=== PATIENT | female | born 1940 | race Caucasian/White ===

== ENCOUNTER → 2016-05-16 | Outpatient (CLI) | payer OTHER ==
[~2016-05-16] MED LIST: ASCO500T16 PO; ASPI-232 PO; ATOR10TA88 PO; CALCTAB66 PO; CHOLTAB11 PO; CITA20TA9 PO; CLON0.5T3 PO; CLON1TAB3 PO; DEXT20CA PO; DIVA250T PO; DIVA500T3 PO; FSLUDL325 PO; INSDGI SC; LEVO125T4 PO; MAGN400T5 PO; MIRT15TA3 PO; OMEP20CA9 PO; PLV75 PO; POTA10PO PO; SENN-91 PO; TRAM-10 PO
[2016-05-16 09:21] LABS: INR 3.4 (0.9-1.1); PROTHROMBIN TIME (PATIENT) 37.7 SECONDS (9.0-12.0)
== END ==
LOC: C.LABUPBEA 08:40
PROVIDERS: ATTEND Family Medicine
DX: I82.501 Chronic embolism and thrombosis of unspecified deep veins of right lower extremity (principal)

== ENCOUNTER → 2016-05-19 | Outpatient (CLI) | payer OTHER ==
[2016-05-19 11:55] LABS: BLOOD UREA NITROGEN 18 mg/dl (7-18); BUN/CREATININE RATIO 19.4 (10-20); CALCIUM 8.1 mg/dl (8.5-10.1); CARBON DIOXIDE 31 mmol/L (21-32); CHLORIDE 104 mmol/L (98-107); CREATININE 0.93 mg/dl (0.60-1.20); GLUCOSE 142 mg/dl (70-99); POTASSIUM 4.3 mmol/L (3.5-5.1); SODIUM 142 mmol/L (136-145)
--- NOTE | 2016-06-21 11:10 | CODING QUERY MEDICAL NECESSITY ---
SUPPORTING DIAGNOSIS NEEDED A supporting diagnosis is required for the test/procedure performed on this patient in order for us to be reimbursed by the patient's insurance. Please provide a supporting diagnosis for the following test/procedure listed below next to the test name along with your signature. *If there is no additional diagnosis for this patient that would support the following test/procedure please document that below next to the test/procedure. Test(s)/Procedure(s) that require a supporting diagnosis: * VITAMIN D DIAGNOSIS: * DOS: 05/19/16 Provider Signature: Date: Thank you Sammie Sanders [facility] Information Management Once completed, please kindly fax back to [phone] For questions please call [phone]
== END | disposition home or self-care (01) ==
LOC: C.LABUPBEA 11:01
PROVIDERS: ATTEND Family Medicine
DX: E11.51 Type 2 diabetes mellitus with diabetic peripheral angiopathy without gangrene (principal); E03.9 Hypothyroidism, unspecified; I67.89 Other cerebrovascular disease; E55.9 Vitamin D deficiency, unspecified

== ENCOUNTER → 2016-05-20 | Outpatient (CLI) | payer OTHER ==
[2016-05-20 09:04] LABS: INR 4.3 (0.9-1.1)
== END ==
LOC: C.LABUPBEA 08:24
PROVIDERS: ATTEND Family Medicine
DX: I67.9 Cerebrovascular disease, unspecified (principal)

== ENCOUNTER → 2016-05-22 | Outpatient (CLI) | payer OTHER ==
[2016-05-22 08:57] LABS: INR 3.4 (0.9-1.1)
== END ==
LOC: C.LABUPBEA 07:50
PROVIDERS: ATTEND Family Medicine
DX: I82.501 Chronic embolism and thrombosis of unspecified deep veins of right lower extremity (principal)

== ENCOUNTER → 2016-05-23 | Outpatient (CLI) | payer OTHER ==
[2016-05-23 09:49] LABS: INR 2.8 (0.9-1.1); PROTHROMBIN TIME (PATIENT) 31.4 SECONDS (9.0-12.0)
== END | disposition home or self-care (01) ==
LOC: C.LABUPBEA 09:12
PROVIDERS: ATTEND Family Medicine
DX: I82.501 Chronic embolism and thrombosis of unspecified deep veins of right lower extremity (principal)

== ENCOUNTER → 2016-06-02 | Outpatient (CLI) | payer OTHER ==
[2016-06-02 09:46] LABS: INR 2.5 (0.9-1.1); PROTHROMBIN TIME (PATIENT) 27.8 SECONDS (9.0-12.0)
== END ==
LOC: C.LABUPBEA 08:48
PROVIDERS: ATTEND Family Medicine
DX: I82.501 Chronic embolism and thrombosis of unspecified deep veins of right lower extremity (principal)

== ENCOUNTER → 2016-06-17 | Outpatient (CLI) | payer OTHER ==
[2016-06-17 09:19] LABS: INR 1.5 (0.9-1.1); PROTHROMBIN TIME (PATIENT) 15.8 SECONDS (9.0-12.0)
== END ==
LOC: C.LABUPBEA 08:58
PROVIDERS: ATTEND Family Medicine
DX: I63.50 Cerebral infarction due to unspecified occlusion or stenosis of unspecified cerebral artery (principal)

== ENCOUNTER → 2016-06-24 | Outpatient (CLI) | payer OTHER ==
[2016-06-24 09:40] LABS: PROTHROMBIN TIME (PATIENT) 45.3 SECONDS (9.0-12.0)
== END ==
LOC: C.LABUPBEA 08:57
PROVIDERS: ATTEND Family Medicine
DX: I82.501 Chronic embolism and thrombosis of unspecified deep veins of right lower extremity (principal)

== ENCOUNTER → 2016-06-29 | Outpatient (CLI) | payer OTHER ==
[2016-06-29 09:06] LABS: INR 3.3 (0.9-1.1); PROTHROMBIN TIME (PATIENT) 37.5 SECONDS (9.0-12.0)
== END ==
LOC: C.LABUPBEA 08:38
PROVIDERS: ATTEND Family Medicine
DX: I82.501 Chronic embolism and thrombosis of unspecified deep veins of right lower extremity (principal)

== ENCOUNTER → 2016-07-06 | Outpatient (CLI) | payer OTHER ==
[2016-07-06 09:12] LABS: PROTHROMBIN TIME (PATIENT) 58.3 SECONDS (9.0-12.0)
[2016-07-06 09:20] LABS: INR 5.1 (0.9-1.1)
== END ==
LOC: C.LABUPBEA 08:43
PROVIDERS: ATTEND Family Medicine
DX: I82.501 Chronic embolism and thrombosis of unspecified deep veins of right lower extremity (principal); R07.0 Pain in throat

== ENCOUNTER → 2016-07-07 | Outpatient (CLI) | payer OTHER ==
[2016-07-07 08:37] LABS: PROTHROMBIN TIME (PATIENT) 45.1 SECONDS (9.0-12.0)
== END | disposition home or self-care (01) ==
LOC: C.LABUPBEA 08:08
PROVIDERS: ATTEND Family Medicine
DX: I82.501 Chronic embolism and thrombosis of unspecified deep veins of right lower extremity (principal)

== ENCOUNTER → 2016-07-08 | Outpatient (CLI) | payer OTHER ==
[2016-07-08 08:50] LABS: BASO % 1.1 %; BASO ABS # 0.05 K/uL (0-0.2); COMPLETE YES; EOS % 3.4 %; IG% 0.6 %; LYMPH % 34.7 %; LYMPH ABS # 1.62 K/uL (1.2-3.4); MEAN CELL VOLUME 85.3 fL (80-100); MEAN CORPUSCULAR HEMOGLOBIN 28.6 pg (25-34); MEAN CORPUSCULAR HGB CONC 33.5 g/dl (32-36); MEAN PLATELET VOLUME 10.3 fL (7.4-10.4); MONO % 5.8 %; NEUT % 54.4 %; PLATELET COUNT 163 K/uL (130-400); RED BLOOD COUNT 4.34 M/uL (4.2-5.4); WHITE BLOOD COUNT 4.67 K/uL (4.8-10.8)
[2016-07-08 08:58] LABS: ALT/SGPT 19 U/L (12-78); BLOOD UREA NITROGEN 18 mg/dl (7-18); CALCIUM 8.4 mg/dl (8.5-10.1); CARBON DIOXIDE 28 mmol/L (21-32); CHLORIDE 99 mmol/L (98-107); CREATININE 0.86 mg/dl (0.60-1.20); GLUCOSE 237 mg/dl (70-99); MAGNESIUM 1.9 mg/dl (1.8-2.4); POTASSIUM 3.9 mmol/L (3.5-5.1); SODIUM 136 mmol/L (136-145)
[2016-07-08 09:01] LABS: PROTHROMBIN TIME (PATIENT) 22.3 SECONDS (9.0-12.0)
[2016-07-08 09:08] LABS: ALB/GLOB RATIO 0.9 (0.9-2)
[2016-07-08 09:09] LABS: ALKALINE PHOSPHATASE 123 U/L (45-117); AST/SGOT 11 U/L (15-37)
[2016-07-08 09:58] LABS: ESTIMATED AVERAGE GLUCOSE 169 mg/dl; HA1C FLAG Normal (Normal)
== END ==
LOC: C.LABUPBEA 08:26
PROVIDERS: ATTEND Family Medicine
DX: E11.51 Type 2 diabetes mellitus with diabetic peripheral angiopathy without gangrene (principal); D64.9 Anemia, unspecified; I82.501 Chronic embolism and thrombosis of unspecified deep veins of right lower extremity; E03.9 Hypothyroidism, unspecified; G89.29 Other chronic pain; F06.30 Mood disorder due to known physiological condition, unspecified

== ENCOUNTER → 2016-07-14 | Outpatient (CLI) | payer OTHER ==
[2016-07-14 09:22] LABS: INR 1.6 (0.9-1.1); PROTHROMBIN TIME (PATIENT) 17.4 SECONDS (9.0-12.0)
--- NOTE | 2016-08-10 13:33 | CODING QUERY MEDICAL NECESSITY ---
SUPPORTING DIAGNOSIS NEEDED A supporting diagnosis is required for the test/procedure performed on this patient in order for us to be reimbursed by the patient's insurance. Please provide a supporting diagnosis for the following test/procedure listed below next to the test name along with your signature. *If there is no additional diagnosis for this patient that would support the following test/procedure please document that below next to the test/procedure. Test(s)/Procedure(s) that require a supporting diagnosis: DOS 3/2 * Vitamin D DIAGNOSIS: Provider Signature: Date: Thank you Yessy Whiting [facility] Information Management Once completed, please kindly fax back to [phone] For questions please call [phone]
== END ==
LOC: C.LABUPBEA 09:02
PROVIDERS: ATTEND Family Medicine
DX: I82.501 Chronic embolism and thrombosis of unspecified deep veins of right lower extremity (principal); D64.9 Anemia, unspecified; E55.9 Vitamin D deficiency, unspecified

== ENCOUNTER → 2016-07-21 | Outpatient (CLI) | payer OTHER ==
[2016-07-21 09:32] LABS: INR 2.9 (0.9-1.1); PROTHROMBIN TIME (PATIENT) 32.8 SECONDS (9.0-12.0)
== END ==
LOC: C.LABUPBEA 09:08
PROVIDERS: ATTEND Family Medicine
DX: I82.501 Chronic embolism and thrombosis of unspecified deep veins of right lower extremity (principal)

== ENCOUNTER → 2016-07-29 | Outpatient (CLI) | payer OTHER ==
[2016-07-29 08:46] LABS: INR 2.4 (0.9-1.1); PROTHROMBIN TIME (PATIENT) 26.5 SECONDS (9.0-12.0)
== END ==
LOC: C.LABUPBEA 08:20
PROVIDERS: ATTEND Family Medicine
DX: I82.501 Chronic embolism and thrombosis of unspecified deep veins of right lower extremity (principal)

== ENCOUNTER → 2016-08-04 | Outpatient (CLI) | payer OTHER ==
[~2016-08-04] MED LIST changes: +ATOR10TA82 PO; -ATOR10TA88 PO; -LEVO125T4 PO; +LEVO125T5 PO
[2016-08-04 09:42] LABS: INR 2.3 (0.9-1.1); PROTHROMBIN TIME (PATIENT) 25.2 SECONDS (9.0-12.0)
== END ==
LOC: C.LABUPBEA 08:52
PROVIDERS: ATTEND Family Medicine
DX: I82.501 Chronic embolism and thrombosis of unspecified deep veins of right lower extremity (principal)

== ENCOUNTER → 2016-08-18 | Outpatient (CLI) | payer OTHER ==
[2016-08-18 09:44] LABS: INR 2.4 (0.9-1.1); PROTHROMBIN TIME (PATIENT) 26.1 SECONDS (9.0-12.0)
== END | disposition home or self-care (01) ==
LOC: C.LABUPBEA 09:22
PROVIDERS: ATTEND Family Medicine
DX: I82.501 Chronic embolism and thrombosis of unspecified deep veins of right lower extremity (principal)

== ENCOUNTER → 2016-09-01 | Outpatient (CLI) | payer OTHER ==
[2016-09-01 08:40] LABS: BLOOD UREA NITROGEN 19 mg/dl (7-18); BUN/CREATININE RATIO 23.1 (10-20); CARBON DIOXIDE 29 mmol/L (21-32); CHLORIDE 102 mmol/L (98-107); CREATININE 0.84 mg/dl (0.60-1.20); GLUCOSE 253 mg/dl (70-99); POTASSIUM 4.4 mmol/L (3.5-5.1); SODIUM 140 mmol/L (136-145)
[2016-09-01 08:48] LABS: CALCIUM 8.2 mg/dl (8.5-10.1)
[2016-09-01 09:57] LABS: ESTIMATED AVERAGE GLUCOSE 237 mg/dl; HA1C FLAG Normal (Normal)
== END ==
LOC: C.LABUPBEA 07:58
PROVIDERS: ATTEND Family Medicine
DX: E11.51 Type 2 diabetes mellitus with diabetic peripheral angiopathy without gangrene (principal); I10 Essential (primary) hypertension

== ENCOUNTER → 2016-09-12 | Outpatient (CLI) | payer OTHER ==
[2016-09-12 09:44] LABS: PROTHROMBIN TIME (PATIENT) 21.5 SECONDS (9.0-12.0)
== END ==
LOC: C.LABUPBEA 09:18
PROVIDERS: ATTEND Family Medicine
DX: I67.89 Other cerebrovascular disease (principal)

== ENCOUNTER → 2016-09-16 | Outpatient (CLI) | payer OTHER | LOC: C.LABUPBEA 09:37 | PROVIDERS: ATTEND Nurse Practitioner Family | DX: I67.9 Cerebrovascular disease, unspecified (principal) ==

== ENCOUNTER → 2016-09-19 | Outpatient (CLI) | payer OTHER ==
[2016-09-19 08:57] LABS: INR 3.1 (0.9-1.1); PROTHROMBIN TIME (PATIENT) 35.1 SECONDS (9.0-12.0)
== END | disposition home or self-care (01) ==
LOC: C.LABUPBEA 08:20
PROVIDERS: ATTEND Family Medicine
DX: I82.501 Chronic embolism and thrombosis of unspecified deep veins of right lower extremity (principal)

== ENCOUNTER → 2016-09-21 | Outpatient (CLI) | payer OTHER ==
[2016-09-21 10:06] LABS: INR 1.9 (0.9-1.1); PROTHROMBIN TIME (PATIENT) 21.4 SECONDS (9.0-12.0)
== END ==
LOC: C.LABUPBEA 09:37
PROVIDERS: ATTEND Family Medicine
DX: I82.501 Chronic embolism and thrombosis of unspecified deep veins of right lower extremity (principal)

== ENCOUNTER → 2016-09-23 | Outpatient (CLI) | payer OTHER ==
[2016-09-23 09:33] LABS: INR 1.5 (0.9-1.1); PROTHROMBIN TIME (PATIENT) 16.8 SECONDS (9.0-12.0)
== END ==
LOC: C.LABUPBEA 08:33
PROVIDERS: ATTEND Nurse Practitioner Family
DX: I82.501 Chronic embolism and thrombosis of unspecified deep veins of right lower extremity (principal)

== ENCOUNTER → 2016-09-26 | Outpatient (CLI) | payer OTHER ==
[2016-09-26 09:19] LABS: INR 1.5 (0.9-1.1); PROTHROMBIN TIME (PATIENT) 16.5 SECONDS (9.0-12.0)
== END | disposition home or self-care (01) ==
LOC: C.LABUPBEA 08:44
PROVIDERS: ATTEND Family Medicine
DX: I82.501 Chronic embolism and thrombosis of unspecified deep veins of right lower extremity (principal)

== ENCOUNTER → 2016-09-30 | Outpatient (CLI) | payer OTHER ==
[2016-09-30 10:24] LABS: INR 1.1 (0.9-1.1); PROTHROMBIN TIME (PATIENT) 11.9 SECONDS (9.0-12.0)
== END ==
LOC: C.LABUPBEA 09:57
PROVIDERS: ATTEND Family Medicine
DX: I82.501 Chronic embolism and thrombosis of unspecified deep veins of right lower extremity (principal)

== ENCOUNTER → 2016-10-03 | Outpatient (CLI) | payer OTHER ==
[2016-10-03 11:09] LABS: INR 1.7 (0.9-1.1); PROTHROMBIN TIME (PATIENT) 18.6 SECONDS (9.0-12.0)
== END | disposition home or self-care (01) ==
LOC: C.LABUPBEA 09:38
PROVIDERS: ATTEND Family Medicine
DX: I82.501 Chronic embolism and thrombosis of unspecified deep veins of right lower extremity (principal)

== ENCOUNTER → 2016-10-07 | Outpatient (CLI) | payer OTHER ==
[2016-10-07 09:13] LABS: BASO % 0.5 %; BASO ABS # 0.03 K/uL (0-0.2); COMPLETE YES; EOS % 4.3 %; HEMATOCRIT 38.6 % (37-47); IG% 0.9 %; LYMPH % 28.3 %; LYMPH ABS # 1.57 K/uL (1.2-3.4); MEAN CELL VOLUME 89.1 fL (80-100); MEAN CORPUSCULAR HEMOGLOBIN 28.9 pg (25-34); MEAN CORPUSCULAR HGB CONC 32.4 g/dl (32-36); MEAN PLATELET VOLUME 9.8 fL (7.4-10.4); PLATELET COUNT 147 K/uL (130-400); RED BLOOD COUNT 4.33 M/uL (4.2-5.4); WHITE BLOOD COUNT 5.54 K/uL (4.8-10.8)
[2016-10-07 09:20] LABS: INR 2.5 (0.9-1.1); PROTHROMBIN TIME (PATIENT) 28.3 SECONDS (9.0-12.0)
[2016-10-07 09:23] LABS: ALB/GLOB RATIO 0.8 (0.9-2); ALKALINE PHOSPHATASE 162 U/L (45-117); ALT/SGPT 45 U/L (12-78); AST/SGOT 13 U/L (15-37); BLOOD UREA NITROGEN 18 mg/dl (7-18); BUN/CREATININE RATIO 19.4 (10-20); CARBON DIOXIDE 29 mmol/L (21-32); CHLORIDE 103 mmol/L (98-107); CREATININE 0.93 mg/dl (0.60-1.20); GLUCOSE 215 mg/dl (70-99); MAGNESIUM 1.9 mg/dl (1.8-2.4); POTASSIUM 4.3 mmol/L (3.5-5.1); SODIUM 139 mmol/L (136-145)
[2016-10-07 09:27] LABS: CALCIUM 8.7 mg/dl (8.5-10.1)
[2016-10-07 09:28] LABS: ESTIMATED AVERAGE GLUCOSE 223 mg/dl; HA1C FLAG Normal (Normal)
== END ==
LOC: C.LABUPBEA 07:47
PROVIDERS: ATTEND Family Medicine
DX: E11.51 Type 2 diabetes mellitus with diabetic peripheral angiopathy without gangrene (principal); I79.8 Other disorders of arteries, arterioles and capillaries in diseases classified elsewhere; E78.5 Hyperlipidemia, unspecified; E03.9 Hypothyroidism, unspecified; I82.501 Chronic embolism and thrombosis of unspecified deep veins of right lower extremity; M25.50 Pain in unspecified joint; F06.30 Mood disorder due to known physiological condition, unspecified

== ENCOUNTER → 2016-10-21 | Outpatient (CLI) | payer OTHER ==
[2016-10-21 09:26] LABS: INR 2.9 (0.9-1.1); PROTHROMBIN TIME (PATIENT) 32.8 SECONDS (9.0-12.0)
== END ==
LOC: C.LABUPBEA 08:42
PROVIDERS: ATTEND Nurse Practitioner Family
DX: I82.501 Chronic embolism and thrombosis of unspecified deep veins of right lower extremity (principal)

== ENCOUNTER → 2016-10-25 | Outpatient (CLI) | payer OTHER ==
[2016-10-25 11:05] LABS: INR 2.2 (0.9-1.1); PROTHROMBIN TIME (PATIENT) 24.1 SECONDS (9.0-12.0)
== END ==
LOC: C.LABUPBEA 09:09
PROVIDERS: ATTEND Nurse Practitioner Family
DX: I82.501 Chronic embolism and thrombosis of unspecified deep veins of right lower extremity (principal)

== ENCOUNTER → 2016-11-01 | Outpatient (CLI) | payer OTHER ==
[2016-11-01 11:06] LABS: INR 2.6 (0.9-1.1); PROTHROMBIN TIME (PATIENT) 28.6 SECONDS (9.0-12.0)
== END ==
LOC: C.LABUPBEA 10:02
PROVIDERS: ATTEND Family Medicine
DX: I82.501 Chronic embolism and thrombosis of unspecified deep veins of right lower extremity (principal)

== ENCOUNTER → 2016-11-08 | Outpatient (CLI) | payer OTHER ==
[~2016-11-08] MED LIST changes: -ATOR10TA82 PO; +ATOR10TA88 PO; +LEVO125T4 PO; -LEVO125T5 PO
[2016-11-08 11:22] LABS: INR 3.7 (0.9-1.1)
== END ==
LOC: C.LABUPBEA 08:46
PROVIDERS: ATTEND Nurse Practitioner Family
DX: I82.501 Chronic embolism and thrombosis of unspecified deep veins of right lower extremity (principal)

== ENCOUNTER → 2016-11-10 | Outpatient (CLI) | payer OTHER ==
[2016-11-10 10:52] LABS: INR 2.1 (0.9-1.1)
== END ==
LOC: C.LABUPBEA 09:22
PROVIDERS: ATTEND Nurse Practitioner Family
DX: I82.501 Chronic embolism and thrombosis of unspecified deep veins of right lower extremity (principal)

== ENCOUNTER → 2016-11-14 | Outpatient (CLI) | payer OTHER ==
[2016-11-14 09:25] LABS: INR 1.9 (0.9-1.1); PROTHROMBIN TIME (PATIENT) 20.7 SECONDS (9.0-12.0)
== END ==
LOC: C.LABUPBEA 08:55
PROVIDERS: ATTEND Nurse Practitioner Family
DX: I82.501 Chronic embolism and thrombosis of unspecified deep veins of right lower extremity (principal)

== ENCOUNTER → 2016-11-24 | Outpatient (CLI) | payer OTHER ==
[2016-11-24 09:51] LABS: INR 1.6 (0.9-1.1); PROTHROMBIN TIME (PATIENT) 17.4 SECONDS (9.0-12.0)
== END | disposition home or self-care (01) ==
LOC: C.LABUPBEA 08:58
PROVIDERS: ATTEND Family Medicine
DX: I82.501 Chronic embolism and thrombosis of unspecified deep veins of right lower extremity (principal)

== ENCOUNTER → 2016-12-01 | Outpatient (CLI) | payer OTHER ==
[2016-12-01 09:42] LABS: INR 2.5 (0.9-1.1); PROTHROMBIN TIME (PATIENT) 27.9 SECONDS (9.0-12.0)
== END | disposition home or self-care (01) ==
LOC: C.LABUPBEA 09:17
PROVIDERS: ATTEND Family Medicine
DX: G81.04 Flaccid hemiplegia affecting left nondominant side (principal); I82.501 Chronic embolism and thrombosis of unspecified deep veins of right lower extremity

== ENCOUNTER → 2016-12-05 | Outpatient (CLI) | payer OTHER ==
[2016-12-05 10:10] LABS: INR 2.7 (0.9-1.1); PROTHROMBIN TIME (PATIENT) 29.7 SECONDS (9.0-12.0)
--- NOTE | 2016-12-07 05:05 | CODING QUERY NO DIAGNOSIS ---
TREATMENT RENDERED WITHOUT A DIAGNOSIS To promote full compliance with coding requirements relating to patient care, physician participation is requested in all cases of tool checker uncertainty. Please assist us with providing a diagnosis/symptom for the test(s) below: A diagnosis/symptom was not documented on your Order. A valid diagnosis/symptom is required to bill all insurances. Please remember that we are unable to code a diagnosis of rule out, probable, possible, questionable, or suspected. Tests that require a diagnosis: DOS 12/05 * PTINR DIAGNOSIS: Provider Signature: Date: Thank you Yessy Whiting Health Information Management Once completed, please kindly fax back to [phone] For questions please call [phone]
== END ==
LOC: C.LABUPBEA 09:22
PROVIDERS: ATTEND Nurse Practitioner Family
DX: I48.91 Unspecified atrial fibrillation (principal)

== ENCOUNTER → 2016-12-09 | Outpatient (CLI) | payer OTHER ==
[2016-12-09 10:11] LABS: INR 2.9 (0.9-1.1); PROTHROMBIN TIME (PATIENT) 32.1 SECONDS (9.0-12.0)
== END ==
LOC: C.LABUPBEA 09:45
PROVIDERS: ATTEND Family Medicine
DX: G81.04 Flaccid hemiplegia affecting left nondominant side (principal); I82.501 Chronic embolism and thrombosis of unspecified deep veins of right lower extremity

== ENCOUNTER → 2016-12-14 | Outpatient (CLI) | payer OTHER ==
[2016-12-14 08:59] LABS: INR 1.8 (0.9-1.1); PROTHROMBIN TIME (PATIENT) 20.2 SECONDS (9.0-12.0)
== END | disposition home or self-care (01) ==
LOC: C.LABUPBEA 08:31
PROVIDERS: ATTEND Nurse Practitioner Family
DX: G81.04 Flaccid hemiplegia affecting left nondominant side (principal); I82.501 Chronic embolism and thrombosis of unspecified deep veins of right lower extremity

== ENCOUNTER → 2016-12-22 | Outpatient (CLI) | payer OTHER ==
[2016-12-22 10:14] LABS: INR 1.2 (0.9-1.1); PROTHROMBIN TIME (PATIENT) 12.9 SECONDS (9.0-12.0)
== END ==
LOC: C.LABUPBEA 08:55
PROVIDERS: ATTEND Nurse Practitioner Family
DX: I82.501 Chronic embolism and thrombosis of unspecified deep veins of right lower extremity (principal)

== ENCOUNTER → 2017-01-09 | Outpatient (CLI) | payer OTHER ==
[2017-01-09 09:02] LABS: BASO % 0.6 %; BASO ABS # 0.03 K/uL (0-0.2); COMPLETE YES; EOS % 3.1 %; HEMATOCRIT 36.9 % (37-47); IG% 0.6 %; LYMPH % 31.5 %; LYMPH ABS # 1.51 K/uL (1.2-3.4); MEAN CELL VOLUME 88.9 fL (80-100); MEAN CORPUSCULAR HEMOGLOBIN 29.9 pg (25-34); MEAN CORPUSCULAR HGB CONC 33.6 g/dl (32-36); MEAN PLATELET VOLUME 9.5 fL (7.4-10.4); MONO % 5.6 %; NEUT % 58.6 %; PLATELET COUNT 142 K/uL (130-400); RED BLOOD COUNT 4.15 M/uL (4.2-5.4); WHITE BLOOD COUNT 4.79 K/uL (4.8-10.8)
[2017-01-09 09:09] LABS: ALT/SGPT 50 U/L (12-78); BLOOD UREA NITROGEN 15 mg/dl (7-18); BUN/CREATININE RATIO 19.2 (10-20); CALCIUM 8.6 mg/dl (8.5-10.1); CARBON DIOXIDE 31 mmol/L (21-32); CHLORIDE 103 mmol/L (98-107); CREATININE 0.78 mg/dl (0.60-1.20); GLUCOSE 161 mg/dl (70-99); MAGNESIUM 1.9 mg/dl (1.8-2.4); POTASSIUM 4.4 mmol/L (3.5-5.1); SODIUM 142 mmol/L (136-145)
[2017-01-09 09:20] LABS: ALKALINE PHOSPHATASE 167 U/L (45-117); AST/SGOT 18 U/L (15-37)
[2017-01-09 09:24] LABS: ESTIMATED AVERAGE GLUCOSE 220 mg/dl; HA1C FLAG Normal (Normal)
== END ==
LOC: C.LABUPBEA 08:42
PROVIDERS: ATTEND Nurse Practitioner Family
DX: E11.51 Type 2 diabetes mellitus with diabetic peripheral angiopathy without gangrene (principal); E03.9 Hypothyroidism, unspecified; D64.9 Anemia, unspecified; M25.50 Pain in unspecified joint; F06.30 Mood disorder due to known physiological condition, unspecified

== ENCOUNTER → 2017-02-09 | Outpatient (CLI) | payer OTHER | END | disposition home or self-care (01) | LOC: C.LABUPBEA 07:59 | PROVIDERS: ATTEND Nurse Practitioner Family | DX: E03.9 Hypothyroidism, unspecified (principal) ==

== ENCOUNTER → 2017-03-07 | Outpatient (CLI) | payer OTHER ==
[2017-03-07 10:49] LABS: CHOLESTEROL/HDL RATIO 4.6
== END ==
LOC: C.LABUPBEA 09:58
PROVIDERS: ATTEND Nurse Practitioner Family
DX: E78.5 Hyperlipidemia, unspecified (principal)

== ENCOUNTER → 2017-03-08 | Outpatient (CLI) | payer OTHER ==
[~2017-03-08] MED LIST changes: +ATOR10TA82 PO; -ATOR10TA88 PO; -LEVO125T4 PO; +LEVO125T5 PO
[2017-03-08 08:28] LABS: MEAN CELL VOLUME 89.4 fL (80-100); MEAN CORPUSCULAR HEMOGLOBIN 29.6 pg (25-34); MEAN CORPUSCULAR HGB CONC 33.2 g/dl (32-36); MEAN PLATELET VOLUME 9.7 fL (7.4-10.4); PLATELET COUNT 149 K/uL (130-400); RED BLOOD COUNT 4.25 M/uL (4.2-5.4)
[2017-03-08 08:35] LABS: ALT/SGPT 28 U/L (12-78); BLOOD UREA NITROGEN 21 mg/dl (7-18); BUN/CREATININE RATIO 24.1 (10-20); CALCIUM 8.8 mg/dl (8.5-10.1); CARBON DIOXIDE 30 mmol/L (21-32); CHLORIDE 105 mmol/L (98-107); CREATININE 0.85 mg/dl (0.60-1.20); GLUCOSE 177 mg/dl (70-99); POTASSIUM 4.5 mmol/L (3.5-5.1); SODIUM 141 mmol/L (136-145)
[2017-03-08 08:36] LABS: INR 1.1 (0.9-1.1)
[2017-03-08 08:38] LABS: ALB/GLOB RATIO 0.9 (0.9-2); ALKALINE PHOSPHATASE 108 U/L (45-117); AST/SGOT 9 U/L (15-37)
== END ==
LOC: C.LABUPBEA 07:56
PROVIDERS: ATTEND Nurse Practitioner Family
DX: D64.9 Anemia, unspecified (principal); I82.501 Chronic embolism and thrombosis of unspecified deep veins of right lower extremity

== ENCOUNTER → 2017-03-22 | Outpatient (CLI) | payer OTHER ==
[2017-03-22 08:55] LABS: HEMATOCRIT 39.5 % (37-47); MEAN CORPUSCULAR HEMOGLOBIN 29.4 pg (25-34); MEAN CORPUSCULAR HGB CONC 32.7 g/dl (32-36); MEAN PLATELET VOLUME 9.6 fL (7.4-10.4); PLATELET COUNT 163 K/uL (130-400); RED BLOOD COUNT 4.39 M/uL (4.2-5.4); WHITE BLOOD COUNT 5.94 K/uL (4.8-10.8)
== END ==
LOC: C.LABUPBEA 07:33
PROVIDERS: ATTEND Nurse Practitioner Family
DX: D64.9 Anemia, unspecified (principal)

== ENCOUNTER → 2017-04-11 | Outpatient (CLI) | payer OTHER ==
[2017-04-11 08:49] LABS: ALT/SGPT 39 U/L (12-78); BLOOD UREA NITROGEN 26 mg/dl (7-18); BUN/CREATININE RATIO 27.7 (10-20); CARBON DIOXIDE 27 mmol/L (21-32); CHLORIDE 104 mmol/L (98-107); CREATININE 0.93 mg/dl (0.60-1.20); GLUCOSE 154 mg/dl (70-99); MAGNESIUM 1.8 mg/dl (1.8-2.4); POTASSIUM 3.9 mmol/L (3.5-5.1); SODIUM 140 mmol/L (136-145)
[2017-04-11 09:00] LABS: ALB/GLOB RATIO 0.9 (0.9-2); ALKALINE PHOSPHATASE 106 U/L (45-117); AST/SGOT 15 U/L (15-37)
[2017-04-11 09:04] LABS: BASO % 0.7 %; BASO ABS # 0.04 K/uL (0-0.2); COMPLETE YES; EOS % 4.2 %; HEMATOCRIT 41.1 % (37-47); IG% 0.3 %; LYMPH % 30.9 %; MEAN CELL VOLUME 90.1 fL (80-100); MEAN CORPUSCULAR HEMOGLOBIN 29.6 pg (25-34); MEAN CORPUSCULAR HGB CONC 32.8 g/dl (32-36); MEAN PLATELET VOLUME 9.9 fL (7.4-10.4); MONO % 6.2 %; NEUT % 57.7 %; PLATELET COUNT 150 K/uL (130-400); RED BLOOD COUNT 4.56 M/uL (4.2-5.4); WHITE BLOOD COUNT 6.14 K/uL (4.8-10.8)
[2017-04-11 12:28] LABS: ESTIMATED AVERAGE GLUCOSE 183 mg/dl; HA1C FLAG Normal (Normal)
== END ==
LOC: C.LABUPBEA 08:20
PROVIDERS: ATTEND Nurse Practitioner Family
DX: E11.51 Type 2 diabetes mellitus with diabetic peripheral angiopathy without gangrene (principal); E03.9 Hypothyroidism, unspecified; D64.9 Anemia, unspecified; F06.30 Mood disorder due to known physiological condition, unspecified; G89.29 Other chronic pain

== ENCOUNTER → 2017-05-07 | Outpatient (CLI) | payer OTHER ==
--- NOTE | 2017-05-18 11:28 | CODING QUERY NO DIAGNOSIS ---
: 1940 TREATMENT RENDERED WITHOUT A DIAGNOSIS To promote full compliance with coding requirements relating to patient care, physician participation is requested in all cases of cloth finishing range operator chief uncertainty. Please assist us with providing a diagnosis/symptom for the test(s) below: A diagnosis/symptom was not documented on your Order. A valid diagnosis/symptom is required to bill all insurances. Please remember that we are unable to code a diagnosis of rule out, probable, possible, questionable, or suspected. Tests that require a diagnosis: * Clostridium Difficile DOS: 05/07/17 DIAGNOSIS: Provider Signature: Date: Thank you Minerva Webber [facility] Information Management Once completed, please kindly fax back to [phone] For questions please call [phone]
== END ==
LOC: C.LABUPBEA 10:21
PROVIDERS: ATTEND Nurse Practitioner Family
DX: Z01.89 Encounter for other specified special examinations (principal)

== ENCOUNTER → 2017-05-10 | Outpatient (CLI) | payer OTHER ==
[~2017-05-10] MED LIST changes: -CLON0.5T3 PO; +CLON0.5T9 PO; -CLON1TAB3 PO; +CLON1TAB4 PO
== END ==
LOC: C.LABUPBEA 08:19
PROVIDERS: ATTEND Nurse Practitioner Family
DX: E03.9 Hypothyroidism, unspecified (principal)

== ENCOUNTER → 2017-07-12 | Outpatient (CLI) | payer OTHER ==
[~2017-07-12] MED LIST changes: +CLON0.5T3 PO; -CLON0.5T9 PO; +CLON1TAB3 PO; -CLON1TAB4 PO
[2017-07-12 08:37] LABS: BASO % 0.6 %; BASO ABS # 0.03 K/uL (0-0.2); EOS % 4.1 %; EOS ABS # 0.21 K/uL (0-0.5); HEMATOCRIT 34.5 % (37-47); HEMOGLOBIN 11.8 g/dL (12.0-16.0); IG# 0.03 K/uL (0.00-0.02); LYMPH % 29.2 %; LYMPH ABS # 1.51 K/uL (1.2-3.4); MEAN CELL VOLUME 88.2 fL (80-100); MEAN CORPUSCULAR HEMOGLOBIN 30.2 pg (25-34); MEAN CORPUSCULAR HGB CONC 34.2 g/dl (32-36); MEAN PLATELET VOLUME 9.3 fL (7.4-10.4); MONO ABS # 0.36 K/uL (0.11-0.59); NEUT % 58.5 %; NEUT ABS # 3.03 K/uL (1.4-6.5); PLATELET COUNT 147 K/uL (130-400); RED CELL DISTRIBUTION WIDTH CV 13.7 % (11.5-14.5); RED CELL DISTRIBUTION WIDTH SD 43.9 fL (36.4-46.3); WHITE BLOOD COUNT 5.17 K/uL (4.8-10.8)
[2017-07-12 08:48] LABS: ALBUMIN 2.6 gm/dl (3.4-5.0); ALT/SGPT 22 U/L (12-78); BLOOD UREA NITROGEN 21 mg/dl (7-18); CALCIUM 8.4 mg/dl (8.5-10.1); CARBON DIOXIDE 32 mmol/L (21-32); CREATININE 0.87 mg/dl (0.60-1.20); GLUCOSE 108 mg/dl (70-99); POTASSIUM 3.9 mmol/L (3.5-5.1); SODIUM 140 mmol/L (136-145)
[2017-07-12 08:58] LABS: ALKALINE PHOSPHATASE 116 U/L (45-117); AST/SGOT 10 U/L (15-37); TOTAL PROTEIN 5.5 gm/dl (6.4-8.2)
[2017-07-12 09:46] LABS: HEMOGLOBIN A1C 7.1 % (4.5-5.6)
== END | disposition home or self-care (01) ==
LOC: C.LABUPBEA 08:25
PROVIDERS: ATTEND Nurse Practitioner Family
DX: E11.51 Type 2 diabetes mellitus with diabetic peripheral angiopathy without gangrene (principal); D64.9 Anemia, unspecified; M25.50 Pain in unspecified joint; E03.9 Hypothyroidism, unspecified; F06.30 Mood disorder due to known physiological condition, unspecified; Z79.899 Other long term (current) drug therapy

== ENCOUNTER → 2017-07-13 | Outpatient (CLI) | payer OTHER | LOC: C.LABSPEC 15:06 | PROVIDERS: ATTEND Nurse Practitioner Family | DX: N39.0 Urinary tract infection, site not specified (principal) ==

== ENCOUNTER → 2017-07-14 | Outpatient (CLI) | payer OTHER | LOC: C.LABUPBEA 08:06 | PROVIDERS: ATTEND Nurse Practitioner Family | DX: R31.9 Hematuria, unspecified (principal) ==

== ENCOUNTER → 2017-08-08 | Outpatient (CLI) | payer OTHER | LOC: C.LABUPBEA 08:38 | PROVIDERS: ATTEND Nurse Practitioner Family | DX: E03.9 Hypothyroidism, unspecified (principal) ==

== ENCOUNTER → 2017-09-07 | Outpatient (CLI) | payer OTHER | LOC: C.LABUPBEA 08:54 | PROVIDERS: ATTEND Nurse Practitioner Family | DX: E03.9 Hypothyroidism, unspecified (principal) ==

== ENCOUNTER → 2017-12-06 | Outpatient (CLI) | payer OTHER ==
[~2017-12-06] MED LIST changes: -CLON0.5T3 PO; +CLON0.5T9 PO; -CLON1TAB3 PO; +CLON1TAB4 PO
[2017-12-06 08:27] LABS: HEMATOCRIT 38.2 % (37-47); HEMOGLOBIN 12.5 g/dL (12.0-16.0); MEAN CELL VOLUME 88.6 fL (80-100); MEAN CORPUSCULAR HGB CONC 32.7 g/dl (32-36); MEAN PLATELET VOLUME 9.9 fL (7.4-10.4); PLATELET COUNT 144 K/uL (130-400); RED CELL DISTRIBUTION WIDTH CV 14.4 % (11.5-14.5); RED CELL DISTRIBUTION WIDTH SD 46.6 fL (36.4-46.3); WHITE BLOOD COUNT 5.27 K/uL (4.8-10.8)
[2017-12-06 08:45] LABS: ALBUMIN 2.9 gm/dl (3.4-5.0); ALKALINE PHOSPHATASE 89 U/L (45-117); ALT/SGPT 20 U/L (12-78); AST/SGOT 10 U/L (15-37); BLOOD UREA NITROGEN 16 mg/dl (7-18); CALCIUM 8.6 mg/dl (8.5-10.1); CARBON DIOXIDE 28 mmol/L (21-32); CHOLESTEROL 127 mg/dl (0-200); CREATININE 0.84 mg/dl (0.60-1.20); GLUCOSE 127 mg/dl (70-99); LDL CHOLESTEROL CALCULATED 55 mg/dl; POTASSIUM 4.2 mmol/L (3.5-5.1); SODIUM 140 mmol/L (136-145); TOTAL PROTEIN 5.7 gm/dl (6.4-8.2)
[2017-12-06 09:28] LABS: HEMOGLOBIN A1C 6.5 % (4.5-5.6)
== END | disposition home or self-care (01) ==
LOC: C.LABUPBEA 07:54
PROVIDERS: ATTEND Nurse Practitioner Family
DX: E11.51 Type 2 diabetes mellitus with diabetic peripheral angiopathy without gangrene (principal); D64.9 Anemia, unspecified; E03.9 Hypothyroidism, unspecified; E78.5 Hyperlipidemia, unspecified